=== PATIENT | female | born 1970 | race Caucasian/White ===

== ENCOUNTER 2022-04-08 10:28 | Emergency (ER) | payer MEDICAID, OTHER ==
[~2022-04-08] VITALS: Ht 170.2 cm; Wt 77.5 kg
[2022-04-08] MEDS ORDERED: lasix (10:31)
[2022-04-08] MEDS ORDERED: keppra (10:31)
[2022-04-08] MEDS ORDERED: KETOROLAC 30MG/ML VIAL IV STA (10:35)
[2022-04-08] MEDS ORDERED: SODIUM CHLORIDE 0.9% 1,000 ML IV ONE (10:45)
[2022-04-08 11:00] VITALS: BP 118/59
[2022-04-08 11:41] LABS: BASOPHILS % 0.5 % (0.0-2.0); EOSINOPHILS % 1.2 % (0.0-5.0); HEMATOCRIT. 40.7 % (36.0-48.0); HEMOGLOBIN. 13.8 g/dL (12.0-16.0); LYMPHOCYTES % 32.1 % (20.0-50.0); MEAN CORPUSCULAR HEMOGLOBIN 30.9 pg (28.0-32.0); MEAN CORPUSCULAR VOLUME 91.2 fL (81.0-99.0); MEAN PLATELET VOLUME 9.1 fl (7.4-10.4); MONOCYTES % 7.4 % (2.0-8.0); NEUTROPHILS % 58.8 % (40.0-76.0); PLATELET 248 x1000/uL (130-400); RED BLOOD CELL COUNT 4.46 mill/uL (4.2-5.4)
[2022-04-08 11:44] LABS: CHLORIDE 107 mEq/L (98-107)
== END 2022-04-08 13:54 | disposition home or self-care (01) ==
LOC: ER 10:28
DX: G40.909 Epilepsy, unspecified, not intractable, without status epilepticus (principal); I50.9 Heart failure, unspecified
CPT/HCPCS: 36415; 80053; 82962; 85025; 96361; 96374; 99283; J1885; J7030